=== PATIENT | female | born 1980 | race African-American/Black ===

== ENCOUNTER 2018-03-27 05:07 | Emergency (ER) | payer SELFPAY ==
[2018-03-27] MEDS ORDERED: ACETAMINOPHEN 325 MG TABLET. PO (06:30)
[2018-03-27] MEDS ORDERED: ACETAMINOPHEN/CODEINE 300/30MG TABLET. (06:39)
[2018-03-27] MEDS ORDERED: ACETAMINOPHEN/CODEINE 300/30MG TABLET. PO (06:45)
== END 2018-03-27 06:37 | disposition home or self-care (01) ==
LOC: ER 05:07
DX: S62.643A Nondisplaced fracture of proximal phalanx of left middle finger, initial encounter for closed fracture (principal); Z98.890 Other specified postprocedural states; Z98.51 Tubal ligation status; Z88.0 Allergy status to penicillin; Y08.89XA Assault by other specified means, initial encounter; Y93.89 Activity, other specified; Y92.89 Other specified places as the place of occurrence of the external cause; Y99.8 Other external cause status
CPT/HCPCS: 29130; 73130; 99284